=== PATIENT | male | born 1990 ===

== ENCOUNTER 2022-08-23 23:04 | Emergency (ER) | payer BC ==
--- OUTSIDE RECORDS SUMMARY | 2022-08-23 23:08 | XMS REPORT | Continuity of Care Document ---
:1990 Author Organization [facility] t Address [address] [place] [address] Care Team Providers Name Role Phone SharpeGwen robertson Lyndsey Attending Clinician Unavailable Lab, Adc Fam Pob I Attending Clinician Unavailable Unknown, Attending Attending Clinician Unavailable UNKNOWN, ATTENDING Attending Clinician Unavailable Jean Marie Rodriguez Attending Clinician JEAN MARIE RESENDEZ Attending Clinician Unavailable SRAVANTHI LOPEZ Attending Clinician Unavailable Sravanthi Lopez PA-C Attending Clinician Payers Payer Name Policy Type Policy Number Effective Date Expiration Date S ource Problems Condition Condition Condition Status Onset Resolution Last Treating Co mments Source Name Details Category Date Date Treatment Clinician Date Blood Blood Problem Active Common tests for tests for Spir it routine routine - [facility] physical physical [facility] examinatio examinatio Me dical n n Center Hyperlipid Hyperlipid Problem Active C ommon emia emia [facility] Allergic Allergic Problem Active Commo n rhinitis rhinitis [facility] Depression Depression Problem Active C ommon with with Spirit anxiety anxiety [facility] Acute Acute Problem Active Common bilateral bilateral Spir it low back low back - [facility] pain [facility] Abdominal Abdominal Problem Active Com mon pain, pain, Spirit lower lower [facility] Allergies, Adverse Reactions, Alerts Allergy Allergy Status Severity Reaction(s) Onset Inactive Treating Comm ents Source Name Type Date Date Clinician NO KNOWN Drug Active Univers ALLERGIE Class ity of [facility] Social History Social Habit Start Date Stop Date Quantity Comments Source [facility] to SARS[facility]2 Not sure [facility] [place] (event[facility] Smoking Status Start Date Stop Date Source Unknown if ever smoked [facility] Medications Ordered Filled Start Stop Current Ordering Indication Dosage Frequency Signature Comments Components Source Medication Medication Date Date Medication? Clinician (SIG) Name Name Joleen Goodrich Yes Na Sharpe 2 sprays Co [facility] Lexapro Yes Na Sharpe 1 tablet Co mmon [facility] Claritin Claritin Yes Na Sharpe 1 tablet Common [facility] Procedures This patient has no known procedures. Encounters Start End Encounter Admission Attending Care Care Encounter Source Date/Time Date/Time Type Type Clinicians Facility Department ID 2021-11-13 Outpatient Sharpe, Na [facility] [id number] Common 11:22:49 [id number] [facility] 2021-11-13 Out[facility] Dell[facility] [id number] Common 11:16:52 [id number] [facility] 2020-11-09 2020-11-09 Laboratory Lab, [facility] 1.2. [id number] Univers 18:44:34 19:04:34 Only Unknown, [facility] [id number] [facility] [id number] Kye as Professio [phone] [address] Office [address] One 2020-11-09 2020-11-09 Outpatient R ABDULLAHI, [facility] [id number] Univers 19:00:00 19:00:00 ATTENDING itlandy [facility] 2020-10-23 2020-10-23 Laboratory Lab, [facility] 1.2. [id number] Univers 18:23:04 18:43:04 Only Jean Marie Resendez [facility] [id number] [facility] [id number] Kye as Professio [phone] [address] One 2020-10-23 2020-10-23 Outpatient R LENORE [facility] [id number] Univers 18:20:00 18:20:00 JEAN MARIE collazo [facility] 2020-10-11 2020-10-11 Outpatient R VISHAL [facility] [id number] Univers 13:20:00 13:20:00 SRAVANTHI colalzo [facility] 2020-10-11 2020-10-11 Laboratory Lab, Adc Fam Denzelb I [email or web address] 1.2. [id number] [facility] 12:05:52 12:25:52 Only Sravanthi Lopez [id number] itlandy [facility] [id number] Kye as Professio [phone] [place] [address] [address] [facility] One 2019-09-02 2019-09-02 [facility] [id number] Common 15:20:00 15:20:[address] [facility] 2019-08-26 2019-08-26 [facility] [id number] Common 11:20:00 11:20:[address] [facility] 2019-07-28 2019-07-28 [facility] [id number] Common 09:54:00 09:54:[address] [facility] 2019-07-11 2019-07-11 [facility] [id number] Common 16:45:00 16:45:[address] [facility] 2019-06-13 2019-06-13 [facility] [id number] Common 11:00:00 11:00:[address] [facility] 2018-12-09 2018-12-09 [facility] [id number] Common 10:00:00 10:00:[address] [facility] 2018-09-06 2018-09-06 [facility] [id number] Common 11:00:00 11:00:[address] [facility] Results This patient has no known results.
[2022-08-23] MEDS ORDERED: NA CHLORIDE 0.9% 1,000 ML ONE (23:38)
[2022-08-23] MEDS ORDERED: KETOROLAC 30 MG/ML INJ ONE (23:38)
[2022-08-23] MEDS ORDERED: ONDANSETRON 4 MG/2 ML VIAL ONE (23:38)
[2022-08-23] MEDS ORDERED: MECLIZINE HCL 12.5 MG TAB ONE (23:38)
[2022-08-24] LABS: Absolute Lymphocytes (CBC) 2.9 K/uL (0.7-4.9); Hematocrit 41.2 % (39.6-49.0); Lymphocytes % 35.8 % (15.3-44.8); MCV 81.7 fL (80-100); MPV 7.5 fL (7.6-11.3); RBC Red Blood Cell Count 5.05 M/uL (4.33-5.43)
[2022-08-24 00:21] LABS: Potassium 3.6 mmol/L (3.5-5.1)
--- NOTE | 2022-08-24 00:48 | ER ---
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 Coronavirus screen: At this time, the client does not indicate any symptoms associated with coronavirus-19. Ebola Screen: No symptoms or risks identified at this time. Risk Assessment: Do you want to hurt yourself or someone else? Patient reports no desire to harm self or others. Onset of symptoms was August 23, 2022. 23:12 Method Of Arrival: Ambulatory hb 23:12 Acuity: JESSICA 3 hb 23:58 Initial Sepsis Screen: Does the patient meet any 2 criteria? No. Patient's initial aa9 sepsis screen is negative. Does the patient have a suspected source of infection? No. Patient's initial sepsis screen is negative. Historical: - Allergies: 23:14 No Known Allergies; hb - Home Meds: 23:14 None [Active]; hb - PMHx: 23:14 None; hb - PSHx: 23:14 None; hb - Immunization history:: Adult Immunizations up to date. - Social history:: Smoking status: Patient denies any tobacco usage or history of. Screenin:57 Abuse screen: Denies threats or abuse. Denies injuries from another. Nutritional aa9 screening: No deficits noted. Tuberculosis screening: No symptoms or risk factors identified. Fall Risk None identified. Assessment: 23:56 General: Appears comfortable, Behavior is calm, cooperative, appropriate for age. Pain: aa9 Complains of pain in left arm Pain does not radiate. Is intermittent. Neuro: Level of Consciousness is awake, alert, obeys commands, Oriented to person, place, time, situation, Communication Clerk are equal bilaterally Moves all extremities. Gait is unsteady, Speech is normal, Facial symmetry appears normal, Pupils are PERRLA. Cardiovascular: Patient's skin is warm and dry. Respiratory: Airway is patent Respiratory effort is even, unlabored. GI: Abdomen is flat. : No signs and/or symptoms were reported regarding the genitourinary system. EENT: No signs and/or symptoms were reported regarding the EENT system. Derm: Skin is intact, is healthy with good turgor. Vital Signs: 23:12 BP 151 / 103; Pulse 83; Resp 16; Temp 97.8; Pulse Ox 100% on R/A; Weight 104.33 kg; hb Height 5 ft. 11 in. (180.34 cm); Pain 3/10; 23:57 BP 137 / 99; Pulse 84; Resp 17 S; Pulse Ox 99% on R/A; aa9 08/24 00:00 BP 125 / 92; Pulse 86; Resp 17 S; Pulse Ox 100% on R/A; aa9 08/23 23:12 Body Mass Index 32.08 (104.33 kg, 180.34 cm) hb ED Course: 08/23 23:09 Patient arrived in ED. ja2 23:14 Triage completed. hb 23:15 Arm band placed on. hb 23:23 Christopher Peña, MIKE is Primary Nurse. as6 23:23 Radha Hi FNP-C is PHCP. kb 23:23 Chilo Sanchez MD is Attending Physician. kb 23:50 Inserted saline lock: 20 gauge in right antecubital area, using aseptic technique. aa9 Blood collected. 23:56 Basic Metabolic Panel Sent. aa9 23:56 CBC with Diff Sent. aa9 23:58 Patient has correct armband on for positive identification. Bed in low position. Call aa9 light in reach. Adult w/ patient. 08/24 00:17 CBC with Diff Sent. aa9 01:01 No provider procedures requiring assistance completed. IV discontinued, intact, aa9 bleeding controlled, No redness/swelling at site. Pressure dressing applied. Administered Medications: 08/23 23:55 Drug: Zofran (Ondansetron) 4 mg Route: IVP; Site: right antecubital; aa9 08/24 00:18 Follow up: Response: No adverse reaction aa9 08/23 23:55 Drug: Meclizine 25 mg Route: PO; aa9 08/24 00:18 Follow up: Response: No adverse reaction aa9 08/23 23:55 Drug: Ketorolac 15 mg Route: IVP; Site: right antecubital; aa9 08/24 00:18 Follow up: Response: No adverse reaction aa9 08/23 23:56 Drug: NS 0.9% 1000 ml Route: IV; Rate: 1000 ml; Site: right antecubital; aa9 08/24 01:05 Follow up: Response: No adverse reaction; IV Status: Completed infusion; IV Intake: aa9 1000ml Medication: 01:01 VIS not applicable for this client. aa9 Intake: 01:05 IV: 1000ml; Total: 1000ml. aa9 Outcome: 00:47 Discharge ordered by MD. mcallister 01:01 Discharged to home ambulatory, with significant other. aa9 01:01 Condition: stable 01:01 Discharge instructions given to patient, family, Instructed on discharge instructions, follow up and referral plans. medication usage, Demonstrated understanding of instructions, follow-up care, medications, Prescriptions given X 1. 01:01 Patient left the ED. aa9 Signatures: Radha Hi, SQUE[employer]LE [employer] LEAK REPAIRER-C SQUEAK RATT[employer] LEAK REPAIRER-Ckb Keila Ramires RN RN Sarah Sánchez Ashby, RN RN as6 Argenis Rea RN RN aa9 Corrections: (The following items were deleted from the chart) 01:05 01:01 GI: Reports aa9 aa9
--- NOTE | 2022-08-24 00:48 | EDPHYS ---
Physician Documentation [facility] Name: Fareed Ward Age: 31 yrs Sex: Male : 1990 Arrival Date: 08/23/2022 Time: 23:09 Bed 8 Private MD: ED Physician Chilo Sanchez HPI: 08/24 00:16 This 31 yrs old Unknown Male presents to ER via Ambulatory with complaints of Numbness kb Of Arm, Arm Pain, Dizziness, Vomiting. 00:16 The patient or guardian complains of pain, tingling, numbness. The complaints affect kb the left arm. Context: The problem was sustained at home, resulted from unknown cause. Onset: The symptoms/episode began/occurred 2 hour(s) ago. Treatment prior to arrival includes: no previous treatment. Modifying factors: The symptoms are alleviated by nothing. the symptoms are aggravated by nothing. Associated signs and symptoms: Pertinent positives: numbness, pain, tingling. Severity of symptoms: At their worst the symptoms were mild, in the emergency department the symptoms are unchanged. The patient has not experienced similar symptoms in the past. The patient has not recently seen a physician. Pt reports he was playing video games for about 4 hours, then started feeling dizzy and nauseous. States he ate something to feel better. Reports he started having intermittent pain to left arm with numbness and tingling. States he has carpal tunnel and does a lot of lifting at work. . Historical: - Allergies: 08/23 23:14 No Known Allergies; hb - Home Meds: 23:14 None [Active]; hb - PMHx: 23:14 None; hb - PSHx: 23:14 None; hb - Immunization history:: Adult Immunizations up to date. - Social history:: Smoking status: Patient denies any tobacco usage or history of. ROS: 08/24 00:15 Constitutional: Negative for fever, chills, and weight loss. kb Abdomen/GI: Positive for nausea, Negative for abdominal pain, vomiting, diarrhea. MS/extremity: Positive for pain, of the left arm. Neuro: Positive for dizziness, numbness, tingling, of the left arm. All other systems are negative. Exam: 00:16 Constitutional: This is a well developed, well nourished patient who is awake, alert, kb and in no acute distress. Head/Face: Normocephalic, atraumatic. Eyes: Pupils equal round and reactive to light, extra-ocular motions intact. Lids and lashes normal. Conjunctiva and sclera are non-icteric and not injected. Cornea within normal limits. Periorbital areas with no swelling, redness, or edema. ENT: Moist Mucous membranes Cardiovascular: Regular rate and rhythm with a normal S1 and S2. No gallops, murmurs, or rubs. No pulse deficits. Respiratory: Respirations even and unlabored. No increased work of breathing. Talking in full sentences Abdomen/GI: Soft, non-tender. No distention Skin: Warm, dry with normal turgor. Normal color. MS/ Extremity: Pulses equal, no cyanosis. Neurovascular intact. Full, normal range of motion. Neuro: Awake and alert, GCS 15, oriented to person, place, time, and situation. Moves all extremities. Normal gait. Psych: Awake, alert, with orientation to person, place and time. Behavior, mood, and affect are within normal limits. 00:19 ECG was reviewed by the Attending Physician. kb Vital Signs: 08/23 23:12 BP 151 / 103; Pulse 83; Resp 16; Temp 97.8; Pulse Ox 100% on R/A; Weight 104.33 kg; hb Height 5 ft. 11 in. (180.34 cm); Pain 3/10; 23:57 BP 137 / 99; Pulse 84; Resp 17 S; Pulse Ox 99% on R/A; aa9 08/24 00:00 BP 125 / 92; Pulse 86; Resp 17 S; Pulse Ox 100% on R/A; aa9 08/23 23:12 Body Mass Index 32.08 (104.33 kg, 180.34 cm) hb MDM: 08/23 23:23 Patient medically screened. kb 08/24 00:15 Data reviewed: vital signs, nurses notes. Data interpreted: Pulse oximetry: on room air kb is 99 %. Interpretation: normal. Counseling: I had a detailed discussion with the patient and/or guardian regarding: the historical points, exam findings, and any diagnostic results supporting the discharge/admit diagnosis, lab results, the need for outpatient follow up, a family practitioner, to return to the emergency department if symptoms worsen or persist or if there are any questions or concerns that arise at home. 00:47 ED course: Pt states numbness has resolved. . kb 08/23 23:35 Order name: CBC with Diff kb 08/23 23:35 Order name: Basic Metabolic Panel; Complete Time: 00:21 kb 08/23 23:35 Order name: IV Start; Complete Time: 23:56 kb 08/23 23:35 Order name: EKG; Complete Time: 23:36 kb 08/23 23:35 Order name: EKG - Nurse/Tech; Complete Time: 00:17 kb EC:19 Rate is 71 beats/min. Rhythm is regular. QRS [place] is Normal. [place] interval is normal at kb 170 msec. QRS interval is normal at 96 msec. QT interval is normal at 408 msec. Administered Medications: 08/23 23:55 Drug: Zofran (Ondansetron) 4 mg Route: IVP; Site: right antecubital; aa9 08/24 00:18 Follow up: Response: No adverse reaction aa9 08/23 23:55 Drug: Meclizine 25 mg Route: PO; aa9 08/24 00:18 Follow up: Response: No adverse reaction 9 08/23 23:55 Drug: Ketorolac 15 mg Route: IVP; Site: right antecubital; aa9 08/24 00:18 Follow up: Response: No adverse reaction 9 08/23 23:56 Drug: NS 0.9% 1000 ml Route: IV; Rate: 1000 ml; Site: right antecubital; aa9 08/24 01:05 Follow up: Response: No adverse reaction; IV Status: Completed infusion; IV Intake: aa9 1000ml Disposition: 06:03 Co-signature as Attending Physician, Chilo Sanchez MD I agree with the assessment and kdr plan of care. Disposition Summary: 08/24/22 00:47 Discharge Ordered Location: Home kb Condition: Stable kb Diagnosis - Dizziness and giddiness kb Followup: kb - With: Emergency Department - When: As needed - Reason: Worsening of condition Followup: kb - With: Private Physician - When: 2 - 3 days - Reason: Recheck today's complaints, Continuance of care, Re-evaluation by your physician Discharge Instructions: - Discharge Summary Sheet kb - Vertigo, [id number] kb - Dizziness, [id number] kb Forms: - Medication Reconciliation Form kb - Thank You Letter kb - Antibiotic Education kb - Prescription Opioid Use kb - Work release form aa9 Prescriptions: - Meclizine 25 mg Oral Tablet - take 1 tablet by ORAL route every 8 hours As needed; 30 tablet; Refills: 0, kb Product Selection Permitted Signatures: Dispatcher [employer] EDRadha Miller, Chilo Lindsey MD MD kdr Baxter, Heather, RN RN Argenis Rea RN RN aa9
[2022-08-24 01:56] VITALS: BP 151/103; TEMP 97.8; O2SAT 100
--- NOTE | 2022-08-25 12:14 | EKG ---
Test Date: 2022-08-24 Test Time: 00:14:20 Head Banquet Waitress: ABDULLAHI MEASUREMENT RESULTS: Intervals: Rate: 71 [place]: 170 QRSD: 96 QT: 376 QTc: 408 Bradley: P: 48 AZ: 170 QRS: 27 T: 33 INTERPRETIVE STATEMENTS: Normal sinus rhythm with sinus arrhythmia Normal ECG No previous ECG available for comparison Electronically Signed On 08-25-22 12:12:00 LOCAL TELEPHONE OPERATOR by Abe Gallo
== END 2022-08-24 01:01 | disposition home or self-care (01) ==
LOC: ER 23:04
DX: R42 Dizziness and giddiness (principal)
CPT/HCPCS: 96361; 93005; 85025; 80048; 36415; 96375; 96374; 99284; J8597; J7030; J2405

== ENCOUNTER 2024-11-24 04:37 | Emergency (ER) | payer BC ==
--- OUTSIDE RECORDS SUMMARY | 2024-11-24 04:40 | XMS REPORT | Continuity of Care Document ---
Author Name Unknown Address [address] [facility] [address] thconnect Address [address] [facility] 1 495 [place] [address] Care Team Providers Care Tobacco Sample Puller Name Role Phone Gwen Sharpe Attending Clinician Unavailable Lab, Adc Fam Pob I Attending Clinician Unavailab le Unknown, Attending Attending Clinician Unavailab le UNKNOWN, ATTENDING Attending Clinician Unavailab Jean Marie Alvarado Attending Clinician [phone] JEAN MARIE GROVER Attending Clinician Unavailable SRAVANTHI LOPEZ Attending Clinician Unavailable Sravanthi Lopez PA-C Attending Clinician [phone] Payers Payer Name Policy Type Policy Number Effective Date Expirati on Date Source Problems Condition Name Condition Details Condition Category Status Onset Date Resolution Date Last Treatment Date Treating Clinician Comments Source Blood tests for routine general physical examinatio n Blood tests for routine general physical examinatio n Problem Active [facility] Hyperlipid emia Hyperlipid emia Problem Active [facility] Allergic rhinitis Allergic rhinitis Problem Active [facility] Depression with anxiety Depression with anxiety Problem Active [facility] Acute bilateral low back pain without sciatica Acute bilateral low back pain without sciatica Problem Active [facility] Abdominal pain, lower Abdominal pain, lower Problem Active [facility] Allergies, Adverse Reactions, Alerts Allergy Name Allergy Type Status Severity Reaction(s) Onset Date Inactive Date Treating Clinician Comments Source NO KNOWN ALLERGIE S Drug Class Active [facility] Social History Social Habit Start Date Stop Date Quantity Comments Source Sex Assigned At [facility] Exposure to SARS-CoV-2 (event) Not sure [facility] Smoking Status Start Date Stop Date Source Unknown if ever smoked [facility] Medications Ordered Medication Name Filled Medication Name Start Date Stop Date Current Medication? Ordering Clinician Indication Dosage Frequency Signature (SIG) Comments Components Source Omnaris Omnaris Yes Na Sharpe 2 sprays in each nostril [facility] Lexapro Lexapro Yes Na Sharpe 1 tablet [facility] Claritin Claritin Yes Na Sharpe 1 tablet [facility] Encounters Start Date/Time End Date/Time Encounter Type Admission Type Attending [facility] Facility Care Department Encounter ID Source 2021-11-13 11:22:49 [facility] [id number] [facility] 2021-11-13 11:16:52 [facility] Shar[facility] [id number] [facility] 2023-04-17 16:52:10 2023-04-17 16:52:10 Outpatient [facility] [id number] Sarath Cha 2020-11-09 18:44:34 2020-11-09 19:04:34 Laboratory Only Lab, Santiago Alfaro I Kiya, Attending [facility] [id number] [facility] 2020-11-09 19:00:00 2020-11-09 19:00:00 Outpatient R UNKNOWN, ATTENDING [facility] [id number] [facility] 2020-10-23 18:23:04 2020-10-23 18:43:04 Laboratory Only LabSantiago Ellis [facility] [id number] [facility] 2020-10-23 18:20:00 2020-10-23 18:20:00 Outpatient JEAN MARIE HASSAN [facility] [id number] [facility] 2020-10-11 13:20:00 2020-10-11 13:20:00 Outpatient SRAVANTHI CALDERON [facility] [id number] [facility] 2020-10-11 12:05:52 2020-10-11 12:25:52 Laboratory Only Lab, Adc Fam Pob Sravanthi Nelson [facility] [id number] [facility] 2019-09-02 15:20:00 2019-09-02 15:20:00 [facility] [id number] [facility] 2019-08-26 11:20:00 2019-08-26 11:20:00 [facility] [id number] [facility] 2019-07-28 09:54:00 2019-07-28 09:54:00 [facility] [id number] [facility] 2019-07-11 16:45:00 2019-07-11 16:45:00 [facility] [id number] [facility] 2019-06-13 11:00:00 2019-06-13 11:00:00 [facility] [id number] [facility] 2018-12-09 10:00:00 2018-12-09 10:00:00 [facility] [id number] [facility] 2018-09-06 11:00:00 2018-09-06 11:00:00 [facility] [id number] [facility]
[2024-11-24] MEDS ORDERED: CYCLOBENZAPRINE 10 MG TAB ONE (05:15)
[2024-11-24] MEDS ORDERED: dexAMETHasone 10 MG/ML VIAL ONE (05:15)
[2024-11-24] MEDS ORDERED: KETOROLAC 30 MG/ML INJ ONE (05:15)
--- NOTE | 2024-11-24 07:17 | RAD REPORT ---
EXAMINATION: CT LUMBAR SPINE WITHOUT CONTRAST CLINICAL INDICATION: Male, 34 years old. PAIN TECHNIQUE: Axial CT images were obtained through the lumbar spine in soft tissue and bone windows wit hout intravenous contrast. Coronal and Sagittal reformatted images were created from the data set. One or more of the following dose reduction techniques were used: Automated exposure control, adjustm ent of the mA and/ or kV according to patient size, and/or iterative reconstruction. Unless otherwise specified, incidental findings do not require dedicated imaging follow-up. [id number]. COMPARISON: No prior exam. FINDINGS: For purposes of this dictation, it is assumed that there are 5 non rib-bearing lumbar type vertebrae, and the most caudal fully segmented lumbar vertebra is labeled L5. ALIGNMENT: Minimal thoracolumbar curvature. BONES: No significant soft tissue abnormalities. No aggressive osseous lesions. DISCS: Intervertebral disc space heights are maintained. LEVELS: No significant spinal canal or neural foraminal stenosis. No visualized abnormality within th e spinal canal. SOFT TISSUE: No soft tissue abnormalities. IMPRESSION: No acute lumbar spine abnormalities.
--- NOTE | 2024-11-24 07:41 | ER ---
Nurse's Notes [facility] Name: Fareed Ward Age: 34 yrs Sex: Male : 1990 Arrival Date: 11/24/2024 Time: 04:37 Bed IW1 Private MD: Diagnosis: Low back pain;Muscle spasm of back Presentation: 11/24 05:08 Chief complaint: Patient states: lower back pain after lifting heavy box of lg3 strawberry's. Coronavirus screen: Client denies travel out of the [place] in the last 14 days. At this time, the client does not indicate any symptoms associated with coronavirus-19. Ebola Screen: No symptoms or risks identified at this time. Initial Sepsis Screen: Does the patient meet any 2 criteria? No. Patient's initial sepsis screen is negative. Does the patient have a suspected source of infection? No. Patient's initial sepsis screen is negative. Risk Assessment: Do you want to hurt yourself or someone else? Patient reports no desire to harm self or others. Onset of symptoms was November 24, 2024. 05:08 Method Of Arrival: Wheelchair lg3 05:08 Acuity: JESSICA 4 lg3 Triage Assessment: 05:10 General: Appears in no apparent distress. comfortable, Behavior is calm, cooperative. lg3 Pain: Complains of pain in back. EENT: No deficits noted. No signs and/or symptoms were reported regarding the EENT system. Neuro: No deficits noted. Recinos Agitation-Sedation Scale (RASS): 0 - Alert and Calm Level of Consciousness is awake, alert, obeys commands, Oriented to person, place, time, situation. Cardiovascular: No deficits noted. Denies chest pain, shortness of breath, Capillary refill < 3 seconds Clubbing of nail beds is absent JVD is absent Patient's skin is warm and dry. Respiratory: No deficits noted. Airway is patent Respiratory effort is even, unlabored, Respiratory pattern is regular, symmetrical. GI: No deficits noted. No signs and/or symptoms were reported involving the gastrointestinal system. : No signs and/or symptoms were reported regarding the genitourinary system. Derm: No deficits noted. No signs and/or symptoms reported regarding the dermatologic system. Skin is intact, is healthy with good turgor, Skin is dry, Skin is normal, Skin temperature is warm. Musculoskeletal: Circulation, motion, and sensation intact. Range of motion: intact in all extremities, Reports pain in back. Historical: - Allergies: 05:10 No Known Allergies; lg3 - Home Meds: 05:10 bupropion HCl 150 mg Oral Tablet, Extended Release 24 hr [Active]; duloxetine 30 mg lg3 oral Capsule, Delayed Release Sprinkle 2 times per day [Active]; - PMHx: 05:10 Anxiety; Depressive disorder; lg3 - PSHx: 05:10 None; lg3 - Immunization history:: Adult Immunizations up to date. - Infectious Disease History:: Denies. - Family history:: not pertinent. - Social history:: Smoking status: Patient denies any tobacco usage or history of. Patient/guardian denies using alcohol, street drugs. - Hospitalizations: : No recent hospitalization is reported. Screenin:12 [facility] ED Fall Risk Assessment (Adult) History of falling in the last 3 months, lg3 including since admission No falls in past 3 months (0 pts) Confusion or Disorientation No (0 pts) Intoxicated or Sedated No (0 pts) Impaired Gait No (0 pts) Mobility Assist Device Used No (0 pt) Altered Elimination No (0 pt) Score/Fall Risk Level 0 - 2 = Low Risk Oriented to surroundings, Maintained a safe environment, Educated pt \T\ family on fall prevention, incl call for assistance when getting out of bed, Assessed \T\ reinforced patient's understanding of fall precautions. Abuse screen: Denies threats or abuse. Denies injuries from another. Nutritional screening: No deficits noted. Tuberculosis screening: No symptoms or risk factors identified. Assessment: 05:12 General: see triage assessment. Neuro: No deficits noted. Recinos Agitation-Sedation lg3 Scale (RASS): 0 - Alert and Calm Level of Consciousness is awake, alert, obeys commands, Oriented to person, place, time, situation. Vital Signs: 05:08 BP 127 / 89; Pulse 81; Resp 16 S; Temp 98.1(O); Pulse Ox 99% on R/A; Weight 97.98 kg lg3 (R); Height 5 ft. 11 in. (R); 05:08 Body Mass Index 30.13 (97.98 kg, 180.34 cm) lg3 ED Course: 04:40 Patient arrived in ED. gm2 04:42 Polanco, Fam, MD is Attending Physician. rn 05:10 Triage completed. lg3 05:10 Arm band placed on right wrist. lg3 05:12 Patient has correct armband on for positive identification. Family accompanied patient. lg3 05:12 No provider procedures requiring assistance completed. lg3 05:47 CT Lumbar Spine Wo Con In Process Unspecified. EDMS 08:12 Suzan Montez, RN is Primary Nurse. iw Administered Medications: 05:25 Drug: Cyclobenzaprine PO 10 mg PO once Route: PO; lg3 05:26 Drug: Ketorolac IM 30 mg IM once Route: IM; Site: right deltoid; lg3 05:26 Drug: Dexamethasone IM 10 mg IM once Route: IM; Site: left deltoid; lg3 Medication: 05:12 VIS not applicable for this client. lg3 Outcome: 07:41 Discharge ordered by MD. rn 08:15 Discharged to home ambulatory, iw 08:15 Condition: good 08:15 Discharge instructions given to patient, family, Instructed on discharge instructions, follow up and referral plans. medication usage, Demonstrated understanding of instructions, follow-up care, medications, Prescriptions given X 3, 08:16 Patient left the ED. iw Signatures: Dispatcher [employer] EDDC Suzan Montez RN RN iw Fam Polanco MD MD rn Able, Lacie, RN RN 3 Zainab Cortez gm2
--- NOTE | 2024-11-24 07:41 | EDPHYS ---
Physician Documentation [facility] Name: Fareed Ward Age: 34 yrs Sex: Male : 1990 Arrival Date: 11/24/2024 Time: 04:37 Bed IW1 Private MD: ED Physician Fam Polanco HPI: 11/24 05:02 This 34 yrs old Unknown Male presents to ER via Unassigned with complaints of Back Pain.rn 05:02 The patient presents with pain that is acute, with no known mechanism of injury. The rn symptoms are located in the low back. Onset: The symptoms/episode began/occurred this morning. The pain does not radiate. Associated signs and symptoms: Pertinent negatives: abdominal pain, chest pain, fever, hematuria, incontinence, nausea, numbness, tingling, urinary retention. Modifying factors: The patient symptoms are alleviated by remaining still, the patient symptoms are aggravated by any movement. Severity of symptoms: At their worst the symptoms were moderate, in the emergency department the symptoms are unchanged. The patient has experienced similar episodes in the past. Patient reports has had multiple episodes of back pain, no back injuries in the past. 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 No radiation. No bowel or bladder issues. No weakness or numbness. No fever or chills.. Historical: - Allergies: 05:10 No Known Allergies; lg3 - Home Meds: 05:10 bupropion HCl 150 mg Oral Tablet, Extended Release 24 hr [Active]; duloxetine 30 mg lg3 oral Capsule, Delayed Release Sprinkle 2 times per day [Active]; - PMHx: 05:10 Anxiety; Depressive disorder; lg3 - PSHx: 05:10 None; lg3 - Immunization history:: Adult Immunizations up to date. - Infectious Disease History:: Denies. - Family history:: not pertinent. - Social history:: Smoking status: Patient denies any tobacco usage or history of. Patient/guardian denies using alcohol, street drugs. - Hospitalizations: : No recent hospitalization is reported. ROS: 05:02 Constitutional: Negative for fever, chills, and weight loss, Cardiovascular: Negative rn for chest pain, palpitations, and edema, Respiratory: Negative for shortness of breath, cough, wheezing, and pleuritic chest pain, Abdomen/GI: Negative for abdominal pain, nausea, vomiting, diarrhea, and constipation, Back: Positive for lower back pain : Negative for injury, bleeding, discharge, and swelling, MS/Extremity: Negative for injury and deformity, Skin: Negative for injury, rash, and discoloration, Neuro: Negative for headache, weakness, numbness, tingling, and seizure, Exam: 05:02 Constitutional: This is a well developed, well nourished patient who is awake, alert, rn in wheelchair, appears slightly uncomfortable Cardiovascular: Regular rate and rhythm. No pulse deficits. Respiratory: No increased work of breathing, no retractions or nasal flaring. Abdomen/GI: Soft, non-tender Back: Midline lower lumbar spinal tenderness and paraspinal tenderness. No CVA tenderness MS/ Extremity: Pulses equal, no cyanosis. Neurovascular intact. Full, normal range of motion. Equal circumference. Neuro: Awake and alert, GCS 15 Vital Signs: 05:08 BP 127 / 89; Pulse 81; Resp 16 S; Temp 98.1(O); Pulse Ox 99% on R/A; Weight 97.98 kg lg3 (R); Height 5 ft. 11 in. (R); 05:08 Body Mass Index 30.13 (97.98 kg, 180.34 cm) lg3 MDM: 04:42 Medical Screening Exam initiated rn 07:34 Differential diagnosis: arthritis. rn 07:34 Differential diagnosis: Muscle spasm, disc problem. rn 07:40 Data reviewed: vital signs, nurses notes, radiologic studies, CT scan, and as a result, rn I will discharge patient. Counseling: I had a detailed discussion with the patient and/or guardian regarding the historical points, exam findings, and any diagnostic results supporting the discharge/admit diagnosis, radiology results, the need for outpatient follow up, to return to the emergency department if symptoms worsen or persist or if there are any questions or concerns that arise at home. Response to treatment: the patient's symptoms have mildly improved after treatment, and as a result, I will discharge patient. Special discussion: I discussed with the patient/guardian in detail that at this point there is no indication for admission to the hospital. It is understood, however, that if the symptoms persist or worsen the patient needs to return immediately for re-evaluation. Based on the history and exam findings, there is no indication for further emergent testing or inpatient evaluation. I discussed with the patient/guardian the need to see the back specialist for further evaluation of the symptoms. 11/24 04:53 Order name: CT Lumbar Spine Wo Con; Complete Time: 07:30 rn Administered Medications: 05:25 Drug: Cyclobenzaprine PO 10 mg PO once Route: PO; lg3 05:26 Drug: Ketorolac IM 30 mg IM once Route: IM; Site: right deltoid; lg3 05:26 Drug: Dexamethasone IM 10 mg IM once Route: IM; Site: left deltoid; lg3 Disposition Summary: 11/24/24 07:41 Discharge Ordered Notes: Location: Home rn Problem: new rn Symptoms: have improved rn Condition: Stable rn Diagnosis - Low back pain rn - Muscle spasm of back rn Followup: rn - With: Private Physician - When: As needed - Reason: Recheck today's complaints, Re-evaluation by your physician Discharge Instructions: - Discharge Summary Sheet rn - Acute Back Pain, Adult rn - Musculoskeletal Pain rn Forms: - Work release form iw - Medication Reconciliation Form rn - 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 - Prescription Opioid Use rn - Patient Portal Instructions rn - Leadership Thank You Letter rn Prescriptions: - Cyclobenzaprine 10 mg Oral tablet - take 1 tablet ORAL route every 8 hours As needed; 15 tablet; Refills: 0, rn Product Selection Permitted - Diclofenac Sodium 75 mg Oral tablet, delayed release (enteric coated) - take 1 tablet ORAL route 2 times per day As needed; 20 tablet; Refills: 0, rn Product Selection Permitted - Medrol (Mookie) 4 mg Oral Tablets, Dose Pack - take 1 tablet ORAL route as directed - follow package instructions; 1 packet; rn Refills: 0, Product Selection Permitted Signatures: Dispatcher [employer] Fam Nash MD MD rn Able, Lacie, RN RN lg3
[2024-11-24 08:20] VITALS: BP 127/89; TEMP 98.1; O2SAT 99
== END 2024-11-24 08:16 | disposition home or self-care (01) ==
LOC: ER 04:37
DX: M62.830 Muscle spasm of back (principal)
CPT/HCPCS: 72131; 96372; 99284; J1100